=== PATIENT | male | born 1995 | race Caucasian/White ===

== ENCOUNTER 2016-11-12 16:09 | Emergency (ER) | payer BC, OTHER ==
[2016-11-12 16:19] VITALS: BP 118/70
--- NOTE | 2016-11-12 16:44 | UC ---
Ear Complaint HPI - HPI Summary HPI Summary: patient was flushing his ear and stuck the syringe in the ear to flush and felt pain. came in for evaluation. - History of Current Complaint Chief Complaint: UCEar Stated Complaint: RIGHT EAR PAIN Time Seen by Provider: 11/12/16 16:22 Hx Obtained From: Patient Onset/Duration: Sudden Onset, Lasting Hours Severity Initially: Mild Severity Currently: Mild Pain Intensity: 3 Pain Scale Used: 0-10 Numeric Associated Signs/Symptoms: Positive: Trauma to Ear - Allergies/Home Medications Allergies/Adverse Reactions: Allergies Allergy/AdvReac Type Severity Reaction Status Date / Time abx unknown Allergy Rash Uncoded 11/12/16 16:19 PMH/Surg Hx/FS Hx/Imm Hx Previously Healthy: Yes - Surgical History Surgical History: Yes Surgery Procedure, Year, and Place: Ear Tubes - Social History Alcohol Use: Rare Substance Use Type: Marijuana Smoking Status (MU): Never Smoked Tobacco Review of Systems Constitutional: Negative Skin: Negative Eyes: Negative ENT: Ear Ache Respiratory: Negative Cardiovascular: Negative Gastrointestinal: Negative Genitourinary: Negative Motor: Negative Neurovascular: Negative Musculoskeletal: Negative Neurological: Negative Psychological: Negative All Other Systems Reviewed And Are Negative: Yes Physical Exam Triage Information Reviewed: Yes Appearance: Well-Appearing, Well-Nourished, Pain Distress Vital Signs: Initial Vital Signs Temp 98.9 F 11/12/16 16:16 Pulse 87 11/12/16 16:16 Resp 14 11/12/16 16:16 BP 118/70 11/12/16 16:16 Pulse Ox 99 11/12/16 16:16 Vital Signs Reviewed: Yes Eye Exam: Normal Eyes: Positive: Conjunctiva Clear ENT Exam: Other - bilateral cerumen impaction, small area of blood noted on the external canal were patient may have hit the syringe. ENT: Positive: Hearing grossly normal, Pharyngeal erythema Dental Exam: Normal Neck exam: Normal Neck: Positive: Supple, Nontender, No Lymphadenopathy Respiratory Exam: Normal Respiratory: Positive: Chest non-tender, Lungs clear, Normal breath sounds Cardiovascular Exam: Normal Cardiovascular: Positive: RRR, No Murmur, Pulses Normal Abdominal Exam: Normal Abdomen Description: Positive: Nontender, No Organomegaly, Soft Bowel Sounds: Positive: Present Musculoskeletal Exam: Normal Musculoskeletal: Positive: Strength Intact, ROM Intact, No Edema Neurological Exam: Normal Neurological: Positive: Alert, Muscle Tone Normal Psychological Exam: Normal Skin Exam: Normal Ear Complaint Course/Dx - Course Course Of Treatment: hisotry obtained, exam performed, attempted to empty ear of wax with ear currette. removed most, proceeded with water irrigation to finish cleaning the ear. treated for bilateral otitis externa, discusses OTC was build up prevention. - Differential Dx/Diagnosis Differential Diagnosis/HQI/PQRI: Cellulitis, Cerumen Impaction, Otitis Externa, Otitis Media, Trauma, URI Provider Diagnoses: bilateral cerumen impaction. bilateral otitis externa Discharge - Discharge Plan Condition: Stable Disposition: HOME Prescriptions: Ciproflox/Dexameth OTIC.SUSP* [Ciprodex OTIC.SUSP*] 4 drop .SEE ORDER BID #1 [id number] Patient Education Materials: Otitis Externa (ED) Additional Instructions: take the medications as prescribed for the full 10 days. you can buy over the counter debrox drops and use them weekly to prevent build up. if you experience any worsening symptoms please follow up with Dr Hewitt or here at urgent care.
== END 2016-11-12 17:06 | disposition home or self-care (01) ==
LOC: UCCORT 16:09
DX: H60.93 Unspecified otitis externa, bilateral (principal); H61.23 Impacted cerumen, bilateral; T16.1XXA Foreign body in right ear, initial encounter; Z88.1 Allergy status to other antibiotic agents
CPT/HCPCS: 99203; G0463

== ENCOUNTER 2017-03-07 18:53 | Inpatient (IN) | payer BC, OTHER ==
[2017-03-07 20:10] LABS: Urine Bilirubin Negative (Negative); Urine Glucose Negative (Negative); Urine Nitrite Negative (Negative)
[2017-03-07 20:21] LABS: Hematocrit 47 % (42-52); Hemoglobin 15.4 g/dl (14.0-18.0); Mean Corpuscular HGB Conc 33 g/dl (31-36); Mean Corpuscular Hemoglobin 30 pg (27-31); Mean Corpuscular Volume 90 fL (80-94); Mean Platelet Volume 8 um3 (7.4-10.4); Red Blood Count 5.16 10^6/ul (4.0-5.4); Red Cell Distribution Width 13 % (10.5-15); White Blood Count 7.4 10^3/ul (3.5-10.8)
[2017-03-07 20:24] LABS: Benzodiazepine Urine Screen None Detected (None Detect)
[2017-03-07 20:36] LABS: ALT 12 U/L (7-52); AST 15 U/L (13-39); Albumin 4.5 g/dL (3.2-5.2); Alkaline Phosphatase 55 U/L (34-104); Anion Gap 4 mmol/L (2-11); Blood Urea Nitrogen 17 mg/dL (6-24); CO2 Carbon Dioxide 30 mmol/L (22-32); Calcium 9.7 mg/dL (8.6-10.3); Chloride 103 mmol/L (101-111); EGFR African American 106.4 (>60); EGFR Non-African American 82.7 (>60); Globulin 2.5 g/dL (2-4); Glucose 78 mg/dL (70-100); Potassium 3.8 mmol/L (3.5-5.0); Sodium 137 mmol/L (133-145)
[2017-03-07 21:23] LABS: Acetaminophen < 15 mcg/mL; Alcohol < 10 mg/dL (<10); Salicylate < 2.50 mg/dL (<30)
[2017-03-07 21:33] LABS: TSH (Thyroid Stimulating Horm) 2.64 mcIU/mL (0.34-5.60)
[2017-03-08] MEDS ORDERED: chlorproMAZINE TAB* 50 MG Q6H PRN AGITATION PO (03:46)
[2017-03-08] MEDS ORDERED: Al Hydrox/Mg Hydrox/Simet LIQ* 30 ML UDC PO PRN (03:46)
[2017-03-08] MEDS ORDERED: Acetaminophen TAB* 325 MG PO PRN (03:46)
--- NOTE | 2017-03-08 08:05 | ED ---
Aneta Seaman [place], scribed for Ryley Verdugo MD on 03/07/17 at 8 . Psychiatric Complaint - HPI Summary HPI Summary: Patient is a 21 y/o male who presents to the ED with anxiety and depression. He expresses concern about his future actions and desires to be evaluated by mental health. Pt states he is not on any medications and denies EtOH or substance use recently. Pts mother reports that pt used to live with his dad, but has recently moved in with her. - History Of Current Complaint Chief Complaint: EDMentalHealth Time Seen by Provider: 03/07/17 19:54 Hx Obtained From: Patient, Family/Floriculture Professor Onset/Duration: Gradual Onset, Lasting Weeks, Still Present Timing: Constant Severity Initially: Moderate Severity Currently: Moderate Character: Depressed, Anxious Aggravating Factor(s): Nothing Alleviating Factor(s): Nothing Associated Signs And Symptoms: Positive: Negative - Allergies/Home Medications Allergies/Adverse Reactions: Allergies Allergy/AdvReac Type Severity Reaction Status Date / Time abx unknown Allergy Rash Uncoded 11/12/16 16:19 PMH/Surg Hx/FS Hx/Imm Hx - Surgical History Surgery Procedure, Year, and Place: Ear Tubes Infectious Disease History: Denies: Hx Clostridium Difficile, Hx Hepatitis, Hx Human Immunodeficiency Virus (HIV), Hx of Known/Suspected MRSA, Hx Shingles, Hx Tuberculosis, Hx Known/ Suspected VRE, Hx Known/Suspected VRSA, History Other Infectious Disease, Traveled Outside the [place] in Last 30 Days - Family History Known Family History: Positive: Hypertension, Other - Depression. - Social History Alcohol Use: Rare Hx Substance Use: Yes Substance Use Type: Reports: Marijuana Hx Tobacco Use: No Smoking Status (MU): Never Smoked Tobacco Review of Systems Negative: Fever Positive: Anxious, Depressed All Other Systems Reviewed And Are Negative: Yes Physical Exam Triage Information Reviewed: Yes Vital Signs On Initial Exam: Initial Vitals Temp Pulse Resp BP Pulse Ox 98.6 F 112 18 117/87 100 03/07/17 18:55 03/07/17 18:55 03/07/17 18:55 03/07/17 18:55 03/07/17 18:55 Vital Signs Reviewed: Yes Appearance: Positive: Well-Appearing, No Pain Distress Skin: Positive: Warm, Skin Color Reflects Adequate Perfusion, Dry Head/Face: Positive: Normal Head/Face Inspection Eyes: Positive: EOMI, ELENITA Neck: Positive: Supple, Nontender Respiratory/Lung Sounds: Positive: Clear to Auscultation, Breath Sounds Present Cardiovascular: Positive: RRR Abdomen Description: Positive: Nontender, Soft Bowel Sounds: Positive: Present Musculoskeletal: Positive: Normal, Strength/ROM Intact Neurological: Positive: Normal, Sensory/Motor Intact, Alert, Oriented to Person Place, Time Diagnostics - Vital Signs Vital Signs Temp Pulse Resp BP Pulse Ox 03/07/17 18:55 98.6 F 112 18 117/87 100 - Laboratory Lab Results: Lab Results 03/07/17 03/07/17 03/07/17 Range/Units 19:56 19:56 20:11 WBC 7.4 (3.5-10.8) 10^3/ul RBC 5.16 (4.0-5.4) 10^6/ul Hgb 15.4 (14.0-18.0) g/dl Hct 47 (42-52) % MCV 90 (80-94) fL MCH 30 (27-31) pg MCHC 33 (31-36) g/dl RDW 13 (10.5-15) % Plt Count 213 (150-450) 10^3/ul MPV 8 (7.4-10.4) um3 Neut % (Auto) 61.4 (38-83) % Lymph % (Auto) 29.3 (25-47) % [place] % (Auto) 8.2 (1-9) % Eos % (Auto) 0.5 (0-6) % Baso % (Auto) 0.6 (0-2) % Absolute Neuts (auto) 4.6 (1.5-7.7) 10^3/ul Absolute Lymphs (auto) 2.2 (1.0-4.8) 10^3/ul Absolute Monos (auto) 0.6 (0-0.8) 10^3/ul Absolute Eos (auto) 0 (0-0.6) 10^3/ul Absolute Basos (auto) 0 (0-0.2) 10^3/ul Absolute Nucleated RBC 0 10^3/ul Nucleated RBC % 0 Urine Color Colorless Urine Appearance Clear Urine pH 6.0 (5-9) Ur Specific [place] 1.001 L (1.010-1.030) Urine Protein Negative (Negative) Urine Ketones Negative (Negative) Urine Blood Negative (Negative) Urine Nitrate Negative (Negative) Urine Bilirubin Negative (Negative) Urine Urobilinogen Negative (Negative) Ur Leukocyte Esterase Negative (Negative) Urine Glucose Negative (Negative) Urine Opiates Screen None detected (None Detect) Ur Barbiturates Screen None detected (None Detect) Ur Phencyclidine Scrn None detected (None Detect) Ur Amphetamines Screen None detected (None Detect) U Benzodiazepines Scrn None detected (None Detect) Urine Cocaine Screen None detected (None Detect) U Cannabinoids Screen None detected (None Detect) Result Diagrams: 03/07/17 20:11 03/07/17 20:11 Lab Statement: Any lab studies that have been ordered have been reviewed, and results considered in the medical decision making process. Course/Dx - Course Course Of Treatment: NO CRITICAL CARE TIME Assessment/Plan: ADMITTED TO [facility] STABLE AFTER [facility] - Differential Dx/Clinical Impression Provider Diagnosis: Mental health problem Discharge - Discharge Plan Condition: Stable Disposition: ADMITTED TO [facility] The documentation as recorded by the Aneta carson Salem accurately reflects the service I personally performed and the decisions made by , Ryley Verdugo MD.
[2017-03-08] MEDS: Vitamin THERAPEUTIC TAB PO SCH (11:25)
--- NOTE | 2017-03-08 11:32 | PN ---
MHU: Group Therapy Note - Service Type Service Type: [id number] Group Psychotherapy - Group Psychotherapy Note: Chan was attentive and participatory in cbt programming, describing frustrations with working in a [employer] locally. 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 He was well related to staff and peers.
[2017-03-08] MEDS ORDERED: Nicotine Inhaler* 10 MG AMP INH PRN (16:32)
[2017-03-08] MEDS ORDERED: Mouth Piece, Nicotine* 1 EACH CARTRIDGE INH ONE (17:00)
--- NOTE | 2017-03-08 18:53 | HP ---
ADMISSION HISTORY AND PHYSICAL NOTE: DATE OF ADMISSION: To the [address] [place], [place] [id number] on 03/08/17 DATE OF EVALUATION: 03/08/17 IDENTIFICATION: Mr. Velazquez is admitted for his first ever psychiatric hospitalization with suicidal and homicidal ideation per his current report to me, though he states these thoughts have been without clear intent or plan. He reports that this was in the context of worsening anxiety and depressive symptoms over the past 6 months over the course of which he has been experimenting with hallucinogenic substances. HISTORY OF PRESENT ILLNESS: Information was obtained from interview of the patient and review of electronic medical record. The patient reports that yesterday at work, he wanted help because of the mental state he was in. He has been struggling with depression and anxiety, he says for the past 6 months, and he was contemplating in the abstract suicide due to an existential crisis, not due to any particular stressors he said to me, although he did cite in prior evaluations having had concerns about his mortality due to his father having had a blood clot that could have killed him had it not been detected and also the recent euthanasia of a family dog. He reports that he has been rationalizing as an escape from the fear of itself. He reports on review of symptoms of depression that his mood has been "a roller coaster" with calm depths and terrifying peaks, mostly in the context of his anxiety with contemplation of mortality. He reports "I suppose" that I am depressed. He reports anhedonia for about the past 6 months, also feelings of worthlessness and guilt over that time. He reports that starting about a week ago he began awakening in the morning with intense anxiety due to his contemplation of his mortality. He reports that prior to that his sleep had been imperfect, but adequate. He reports his energy level has been low and his appetite has been wavering perhaps attributed to the anxiety that he has reported. He reports that it is difficult to concentrate on things beyond 15 to 30 minutes. He attributes this in part to a history of having been "baby sat" by a play station since the age of 8, also indulging in [employer] videos prominently. He reports that he is back and forth between hopeful and hopeless. He denies any suicidal ideation with a plan. He reports that his thoughts about suicide are only in the context of existential angst. He reports that he has had no symptoms of seb such as racing thoughts, talking fast, decreased need for sleep, and so on. He reports that his anxiety level has been fairly intense in recent months, rating it about an 8/10 on most days, 10/10 on bad days. He denies, however, having any panic attacks. He denies ever any history of trauma or PTSD symptoms. He reports that although he will avoid cracks when walking down a sidewalk and will often walk on his toes that he has no other OCD symptoms such as repeated checking, ordering, counting, or germ phobia. He reports that he has had some hallucinations under the influence of hallucinogenic substances, but never otherwise. He reports that he has never had any ideas of reference, paranoid ideation, delusions, or other psychotic symptoms. MENTAL STATUS EXAMINATION: This is a young man looking his age of 21 with grooming and hygiene adequate to the setting. He makes good eye contact. He has speech of regular rate, rhythm, and volume. He is alert and oriented to person, place, time, and situation. He reports his mood as "positive" with calm and even affect. He denies any auditory or visual hallucinations or paranoid ideation. He denies any suicidal or homicidal ideation. His insight and judgment are fair. His impulse control is intact. PAST PSYCHIATRIC HISTORY: He has never been psychiatrically hospitalized until now. He has only had 2 contacts with therapists, one recently with Naomi Lizarraga, with whom he has an appointment for followup on Monday: he had concerns that he would not be safe waiting for that followup appointment when he presented in the emergency department. He also reports that at about the age of 11, he saw a therapist on the insistence of his school because he was "being a weird kid" with outbursts and so on. He reports that there was contemplation of ADHD and Asperger syndrome, but his parents dismissed the assessment. He denies ever having been diagnosed with any sort of psychiatric disorder. He denies ever any trials of medications. He reports that he has never attempted suicide nor elaborated any specific plan toward suicide, and that his thoughts about suicide have been in the hypothetical in terms of whether this meaningless life is worth continuing. SUBSTANCE ABUSE HISTORY: The patient reports that he had a habit of smoking marijuana 2 to 3 times a week, but stopped about 3 weeks ago, having started at about the age of 19 with increasing use over the past 2 years. He reports that over the past 6 months, he has experimented with hallucinogens using mushrooms once, LSD twice, and Salvia once. He reports that the experience of mushrooms was all positive, that the first experience with LSD was good until he got caught in a "thought loop" which he describes as having forgotten the purpose he had in mind when for example getting a glass of water and going back downstairs to get another glass of water. He reports that the second experience with LSD was worse because he was alone. He did not describe his experience with salvia. He reports only drinking alcohol rarely because his father has alcohol use disorder. He has only once drank to blackout he says. He denies ever any abuse of heroin, cocaine, methamphetamine, amphetamines, benzodiazepines, or other prescription medications. He denies ever any abuse of inhalants or over-the- counter medications. He denies any injection drug use. He reports drinking about a cup of coffee every 3 days. PAST MEDICAL HISTORY: Denies any. Denies specifically any history of traumatic brain injuries, syncopal episodes, or heart problems though he does report that his family has some hypertension and he is concerned about that predisposition. He reports that when he was a young child about the age of 4 he would have episodes where he would pretend that he was a Lego action figure after having a fever and for some reason this was seen as an indication of postfebrile seizures. PAST SURGICAL HISTORY: Denies any. MEDICATIONS AT ADMISSION: None. FAMILY PSYCHIATRIC HISTORY: The patient reports his mother has depression and anxiety and that she came close to attempting suicide about 3 to 4 years ago when she was in an argument with her boyfriend and had a gun in her hand taken away. He reports that she has a possible diagnosis of bipolar affective disorder. SOCIAL HISTORY: The patient grew up in this area. 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 He has 2 half-siblings , a brother 30, a sister 32. The brother has epilepsy. The sister is doing okay he says. He reports that he did not do so well in school, that he attended a community college locally and had to leave due to poor performance in computer science classes, but intends to return there to study computer science and [employer]. LEGAL HISTORY: Denies any. PHYSICAL EXAMINATION Physical examination was performed in the emergency department. There, it was documented that he was within normal limits across all organ systems. He declines a repeat physical examination. He gives a negative review of symptoms for chest pain, shortness of breath, nausea, vomiting, constipation, diarrhea, pain, or dizziness and says that he is not having any symptoms of concern currently other than those I have asked about, although he does state that about 3 months ago he had bright red blood on toilet paper which resolved. I have advised him that this was most likely an anal fissure or hemorrhoid, and that he should follow up with his primary care physician to allay concerns about this. Given his currently negative review of symptoms and recent normal physical exam, I will honor his reasonable request to not be reexamined. VITAL SIGNS: Last entered into the electronic medical record at 7:28 A.M. on 03.08.17, temperature was 99.2, pulse 97, respiratory rate 16, elevated heart rate to 100 which it has been since 9 p.m. the previous evening. Blood pressure , normal, 115/74. LABORATORY VALUES: CBC with differential entirely within normal limits. Comprehensive metabolic panel entirely within normal limits including a normal TSH of 2.64. Urinalysis negative with a low specific gravity of 1.001 and toxicology screen negative for all substances in urine and serum. ASSESSMENT AND PLAN: Chan Velazquez is a 21-year-old single male who has been admitted due to report of thoughts of suicide and homicide. His report of these thoughts to me is that they are without any sort of clear intent or plan, only passing thoughts that are disturbing to him. He reports for example that when he is upset at someone, he will imagine killing them, but makes no definite plan toward doing that. He reports that he has thoughts about suicide , but only in the context of fear of and trying to stave off that fear by preemptive action. He reports that over the past 6 months he has had increasing symptoms of depression and anxiety, this in the context of experimentation on 4 occasions with hallucinogenic substances over that time frame. He does endorse sufficient symptoms to be diagnosed with major depressive disorder with prominent anxiety. We will be offering him Celexa. He voiced his understanding of the potential side effects of increased thoughts of suicide, decreased sex drive, difficulties with bleeding disorders, and possible insomnia or headaches. He reports that he is accepting of these potential side effects for the possible benefits against his depression and anxiety. He is interested in continuing care with his therapist who he has met once, Naomi Lizarraga, and would like referral as well to psychiatrist for continued care. He is encouraged to make use of therapeutic milieu and groups. We will be monitoring his mental status and safety. We will consider psychological testing. DIAGNOSES: Major depressive disorder, single episode, severe without psychotic features and with prominent anxiety. [id number]/[facility] #: [id number] [facility] SYSTEM[facility]ima
[2017-03-09] MEDS: Citalopram TAB* 10 MG PO SCH (09:01)
[2017-03-09] MEDS: Vitamin THERAPEUTIC TAB PO SCH (09:01)
--- NOTE | 2017-03-09 09:44 | PN ---
Subjective - Subjective Service Type: 38827 Hosp care 15 min low complexity Subjective: Chan reports that he is sleeping OK and has no physical complaints. He started low dose Celexa today, and so far has no complaint of side effects. He agrees to complete an MMPI to help clarify assessment. Objective - Appearance Appearance: Healthy Appearing Dysmorphic Features: No Hygiene: Normal Grooming: Fairly Well Kept - Behavior Psychomotor Activities: Normal Exhibits Abnormal Movement: No - Attitude and Relatedness Attitude and Relatedness: Cooperative Eye Contact: Good - Speech Quality: Unpressured Latencies: Normal Quantity: Appropriate - Mood Patient's Decription of Mood: "Could be better" - Affect Observed Affect: Fair Affect Consistent with: Dysphoria - mild - Thought Process Patient's Thought Process: Coherent, Goal Directed, Circumstantial - mildly Thought Content: Yes Passive Wish, No Suicidal Planning, No Homicidal Ideation, No Paranoid Ideation - Sensorium Experiencing Hallucinations: No, Sensorium is Clear Type of Hallucinations: Visual: No, Auditory: No, Command: No - Level of Consciousness Level of Consciousness: Alert Orientation: Yes Intact, Yes Orientated to Time, Yes Orientated to Place, Yes Orientated to Person - Impulse Control Impulse Control: Intact - Insight and Judgement Insight and Judgement: Poor - f - Group Participation Particating in Group Activities: Yes - Medication Management Medication Management Adherence: Yes Assessment - Assessment Merits Inpatient Hospitalization: Consolidate Improvements, For Discharge Planning Inpatient DSM-IV Dx: Major depressive disorder, single episode, severe without psychotic features and with prominent anxiety. Clinical Impression: Day of admission, 5.17.17 Chan Velazquez is a 21-year-old single male who has been admitted due to report of thoughts of suicide and homicide. His report of these thoughts to me is that they are without any sort of clear intent or plan, only passing thoughts that are disturbing to him. He reports for example that when he is upset at someone, he will imagine killing them, but makes no definite plan toward doing that. He reports that he has thoughts about suicide, but only in the context of fear of and trying to stave off that fear by preemptive action. He reports that over the past 6 months he has had increasing symptoms of depression and anxiety, this in the context of experimentation on 4 occasions with hallucinogenic substances over that time frame. He does endorse sufficient symptoms to be diagnosed with major depressive disorder with prominent anxiety. We will be offering him Celexa. He voiced his understanding of the potential side effects of increased thoughts of suicide, decreased sex drive, difficulties with bleeding disorders, and possible insomnia or headaches. He reports that he is accepting of these potential side effects for the possible benefits against his depression and anxiety. He is interested in continuing care with his therapist who he has met once, Naomi Lizarraga, and would like referral as well to psychiatrist for continued care. He is encouraged to make use of therapeutic milieu and groups. We will be monitoring his mental status and safety. We will consider psychological testing. 03.09.17 Chan agrees to psychological testing toward clarification of assessment. He reports early remission of suicidal and homicidal thoughts. He reports continued low mood with prominent anxiety. Plan - Plan Treatment Plan: Name: CHAN VELAZQUEZ Birthdate: 1995 [id number] MMPI today. Continue Celexa, with dose increase to 20 mg tomorrow if well- tolerated at 10 mg. Arrange for follow-up care following discharge. Medications: Current Medications Acetaminophen (Tylenol Tab*) 650 mg PO Q4H PRN PRN Reason: PAIN or TEMP > 101 F Al Hydrox/Mg Hydrox/Simethicone (Maalox Plus*) 30 ml PO Q4H PRN PRN Reason: INDIGESTION Chlorpromazine HCl (Thorazine Tab*) 50 mg PO Q6H PRN PRN Reason: AGITATION Citalopram Hydrobromide (Celexa Tab*) 10 mg PO DAILY [facility] Last Admin: 03/09/17 09:01 Dose: 10 mg Diphenhydramine HCl (Benadryl Po*) 50 mg PO Q6H PRN PRN Reason: AGITATION/INSOMNIA Multivitamins (Theragran Tab*) 1 tab PO DAILY [facility] Last Admin: 03/09/17 09:01 Dose: 1 tab Nicotine (Nicotine Inhaler*) 10 mg INH Q2H PRN PRN Reason: CRAVING - Discharge Plan Discharge Plan: Outpatient Follow Up
[2017-03-10] MEDS: Vitamin THERAPEUTIC TAB PO SCH (08:54)
[2017-03-10] MEDS: Citalopram TAB* 10 MG PO SCH (08:54)
--- NOTE | 2017-03-10 15:29 | CONS ---
PSYCHOLOGICAL REPORT: DATE OF CONSULTATION: 03/10/17 REASON FOR REFERRAL: Chan was referred for a personality testing secondary to concerns regarding possible psychotic range disturbance. TEST ADMINISTERED: Chan completed the [place] Multiphasic Personality Inventory-2 (MMPI-2) as well as the Rorschach Inkblot Projective Exam. He was given feedback in the context of individual psychotherapy session. 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 He describes a very tedious day at work, typically loading "boxes in the boxes. " He is interested in becoming an author and aspires to return to [employer] next year to resume his studies. Chan denies any prior psychiatric hospitalization and has had some outpatient contact prior to coming here. 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 Chan is very clear and articulate about his thoughts and experiences, describing what impresses as an existential crisis of sorts regarding his conception of . He describes being distraught due to permanence of life and the impermanence of his impact on other people especially. He went on to describe how he fell into despair as the only way "out of this mortal coil" is through . Despite these rather intense fixations on life, , and the hereafter, he describes being a devout agnostic. He describes having some interpersonal conflicts secondary to orthodoxy beliefs that apparently were in conflict with some of his friends. However, he is not in acute duress about the loss of contact with these peers. Chan denies any historical difficulties with traumas, other than describing himself as being "a weird kid" and perhaps might have had some Asperger-type syndrome symptomatology. He has not been on medications of any sort until recently being placed on an antidepressant. TEST RESULTS: Chan provides a somewhat distressed profile on this administration of the MMPI-2. He elevates at 3 stress scales on validity indicators, attending a T-score of 105 on the FB scale. Persons high on this scale have endorsed high percentage of items reflecting cynical and pessimistic beliefs and attitudes about people and circumstances. Despite an elevation on this scale, he only has a very mild elevation on the depression scale (T = 67) with more profound elevations occurring on the right half of this testing, with a high point on the schizophrenia scale (T = 88). He has lesser elevations on the paranoia (T = 70), and the psychasthenia scales (T = 75). Interpersonal duress was also the primary clinical indication present in his projections on the Rorschach. He uses color and form in easily accessible and conventional fashions, but articulates dysphoric responses in the context of expectations of relationships. His response set on the Rorschach reveals good reality contact. Although his identifies experiencing auditory hallucinations over the weekend, this symptom has not persisted. Chan is clear and articulate in both group and individual discussion, and offers pro social future orientation, describing immediate plans to attend 3 and then hopefully attend a 4 year school. He also describes hopes in the interpersonal context, and is looking forward to living independently while attending college. Feedback with Chan addressed his sense of feeling emotionally alienated from perceived supports and feeling misunderstood by others. He relates this to possible dysphoric feelings about relationships, but overall returns to a characteristic theme of questioning the value of his life given what impresses him as a perpetual state of impermanence. Chan was encouraged to engage in readings regarding existential writers as well as developing spirituality and perceptions of life and through other forms of activity, including spirituality and perhaps pastoral counseling. Discussion addressed developing conceptions of life and as an appropriate developmental concept that people often do not begin to develop until later stages in life. However, given his college age range, such persons often begin to struggle with such questions of meaning and of . Treatment should continue to assess for possible lethality. It is thought to be reassuring that Chan processes actual thoughts of methodology in regards to suicide as ego dystonic and that he is terrified of the idea of and does not impress as having intentions to follow through with such ideation. He continues to report intrusive thoughts thereof, but does not impress this hand sign writer as likely to act upon these ideas. He has been an active and interested participant in group psychotherapies and has been adherent to unit rules and instructions. DIAGNOSTIC IMPRESSION: Does not impress as being consistent with psychosis, but is reflected in a major depressive disorder, moderate without psychotic features and with prominent anxiety. [id number]/[facility] #: [id number] JUSTUS
--- NOTE | 2017-03-10 15:35 | PN ---
Subjective - Subjective Service Type: 83698 Hosp care 15 min low complexity Subjective: Chan reports a good unit experience - made friendly connections with peers, finds programming useful, feels supported. Emotional pain is "less" and he again says that any suicidal and homicidal ideation was abstract and is not connected to desire to or harm anyone. He affirms he is safe and would like to plan discharge. He accepts idea of consolidation treatment, and asks for off unit walks (I reviewed this with staff and we support it). He denies side effects with Celexa. Objective - Appearance Appearance: Thin Framed Hygiene: Normal Grooming: Well Kept - Behavior Psychomotor Activities: Normal - Attitude and Relatedness Attitude and Relatedness: Cooperative Eye Contact: Good - Speech Quality: Unpressured Latencies: Normal Quantity: Appropriate - Mood Patient's Decription of Mood: "Okay" - Affect Observed Affect: Non-labile Affect Consistent with: Dysphoria - mild - Thought Process Patient's Thought Process: Coherent, Goal Directed Thought Content: No Passive Wish, No Suicidal Planning, No Homicidal Ideation, No Paranoid Ideation - Sensorium Experiencing Hallucinations: No, Sensorium is Clear - Level of Consciousness Level of Consciousness: Alert - Impulse Control Impulse Control: Intact - Insight and Judgement Insight and Judgement: Fair Assessment - Assessment Merits Inpatient Hospitalization: For Stabilization, To Initiate Treatment, For Ongoing Evaluation, Consolidate Improvements, For Discharge Planning Inpatient DSM-IV Dx: Major depressive disorder, single episode, severe without psychotic features and with prominent anxiety. Clinical Impression: First psychiatric admission for a 21-year-old male with minimal prior outpatient mental health contacts. He presented to the ED by car and was admitted due to concern over vague suicidal and homicidal ideation, in the setting of symptoms of depression and anxiety. Stabilizing here. Depressive symptoms continue, with lower apparent distress levels. He is safe on checks, and free of active suicidal or homicidal ideation. Medication mgt. is with new Celexa trial. Psychological testing with MMPI was correlated clinically - see Dr. Jeter's consultation note. Plan - Plan Treatment Plan: Name: CHAN REYES Birthdate: 1995 [id number] Continued Medication Management: Start Medication Medications: Current Medications Acetaminophen (Tylenol Tab*) 650 mg PO Q4H PRN PRN Reason: PAIN or TEMP > 101 F Al Hydrox/Mg Hydrox/Simethicone (Maalox Plus*) 30 ml PO Q4H PRN PRN Reason: INDIGESTION Chlorpromazine HCl (Thorazine Tab*) 50 mg PO Q6H PRN PRN Reason: AGITATION Citalopram Hydrobromide (Celexa Tab*) 10 mg PO DAILY [facility] Last Admin: 03/10/17 08:54 Dose: 10 mg Diphenhydramine HCl (Benadryl Po*) 50 mg PO Q6H PRN PRN Reason: AGITATION/INSOMNIA Multivitamins (Theragran Tab*) 1 tab PO DAILY [facility] Last Admin: 03/10/17 08:54 Dose: 1 tab Nicotine (Nicotine Inhaler*) 10 mg INH Q2H PRN PRN Reason: CRAVING - Discharge Plan Discharge Plan: Outpatient Follow Up
[2017-03-11] MEDS: Citalopram TAB* 10 MG PO SCH (09:04)
[2017-03-11] MEDS: Vitamin THERAPEUTIC TAB PO SCH (09:04)
--- NOTE | 2017-03-12 08:03 | PN ---
Subjective - Subjective Service Type: 23876 Hosp care 15 min low complexity Subjective: Reports ongoing thoughts of and feeling in an existential crisis but denies homicidal thoughts. Tolerating celexa 10 mg. Reports sleeping well but still anxious. Objective - Appearance Appearance: Well Developed/Nourished, Healthy Appearing Dysmorphic Features: No Hygiene: Normal Grooming: Well Kept - Behavior Psychomotor Activities: Normal Exhibits Abnormal Movement: No - Attitude and Relatedness Attitude and Relatedness: Well Related Eye Contact: Good - Speech Quality: Unpressured Latencies: Normal Quantity: Appropriate - Mood Patient's Decription of Mood: "Anxious" - Affect Observed Affect: Depressed Affect Consistent with: Dysphoria - Thought Process Patient's Thought Process: Coherent, Goal Directed Thought Content: Yes Passive Wish, No Suicidal Planning, No Homicidal Ideation, No Paranoid Ideation - Sensorium Experiencing Hallucinations: No, Sensorium is Clear Type of Hallucinations: Visual: No, Auditory: No, Command: No - Level of Consciousness Level of Consciousness: Alert Orientation: Yes Intact, Yes Orientated to Time, Yes Orientated to Place, Yes Orientated to Person - Impulse Control Impulse Control: Tenuous - Insight and Judgement Insight and Judgement: Fair - Group Participation Particating in Group Activities: Yes - Medication Management Medication Management Adherence: Yes Assessment - Assessment Merits Inpatient Hospitalization: For Immediate Safety, For Stabilization, Consolidate Improvements Inpatient DSM-IV Dx: Major depressive disorder, single episode, severe without psychotic features and with prominent anxiety. Plan - Plan Treatment Plan: Name: SARAI REYES Birthdate: 1995 [id number] Continued Medication Management: Different Medication - continue celexa 10 mg with upward titration later Medications: Current Medications Acetaminophen (Tylenol Tab*) 650 mg PO Q4H PRN PRN Reason: PAIN or TEMP > 101 F Al Hydrox/Mg Hydrox/Simethicone (Maalox Plus*) 30 ml PO Q4H PRN PRN Reason: INDIGESTION Chlorpromazine HCl (Thorazine Tab*) 50 mg PO Q6H PRN PRN Reason: AGITATION Citalopram Hydrobromide (Celexa Tab*) 10 mg PO DAILY [facility] Last Admin: 03/11/17 09:04 Dose: 10 mg Diphenhydramine HCl (Benadryl Po*) 50 mg PO Q6H PRN PRN Reason: AGITATION/INSOMNIA Multivitamins (Theragran Tab*) 1 tab PO DAILY [facility] Last Admin: 03/11/17 09:04 Dose: 1 tab Nicotine (Nicotine Inhaler*) 10 mg INH Q2H PRN PRN Reason: CRAVING - Discharge Plan Discharge Plan: Outpatient Follow Up Outpatient Program: in [facility] he lives in
[2017-03-12] MEDS: Vitamin THERAPEUTIC TAB PO SCH (09:13)
[2017-03-12] MEDS: Citalopram TAB* 10 MG PO SCH (09:13)
[2017-03-13 08:02] VITALS: BP 124/74
[2017-03-13] MEDS: Citalopram TAB* 10 MG PO SCH (08:58)
[2017-03-13] MEDS: Vitamin THERAPEUTIC TAB PO SCH (08:58)
--- NOTE | 2017-03-13 12:15 | DS ---
Subjective - Subjective Service Types: 77110 [facility] Day Mgmt simple under 30 min Discharge Date: 03/13/17 Subjective: Chan reports he feels safe and ready for discharge today. His father visited him over the weekend, and has reported to Ms Ford that his son seems at his usual baseline and he has no concerns for his safety following discharge. Psychological testing likewise found no indications of acute safety concerns or psychosis. Chan has no physical complaints, nor complaint of any side effects of Celexa. Objective - Appearance Appearance: Healthy Appearing Dysmorphic Features: No Hygiene: Normal Grooming: Well Kept - Behavior Psychomotor Activities: Normal Exhibits Abnormal Movement: No - Attitude and Relatedness Attitude and Relatedness: Cooperative Eye Contact: Good - Speech Quality: Unpressured Latencies: Normal Quantity: Appropriate - Mood Patient's Decription of Mood: "Pretty alright" - Affect Observed Affect: Fair Affect Consistent with: Euthymia - Thought Process Patient's Thought Process: Coherent, Goal Directed Thought Content: No Passive Wish, No Suicidal Planning, No Homicidal Ideation, No Paranoid Ideation - Sensorium Experiencing Hallucinations: No, Sensorium is Clear Type of Hallucinations: Visual: No, Auditory: No, Command: No - Level of Consciousness Level of Consciousness: Alert Orientation: Yes Intact, Yes Orientated to Time, Yes Orientated to Place, Yes Orientated to Person - Insight and Judgement Insight and Judgement: Good - Group Participation Particating in Group Activities: Yes - Medication Management Medication Management Adherence: Yes Treatment Course & Assessment Clinical Course & Impression: Day of admission, 03.08.17 Chan Velazquez is a 21-year-old single male who has been admitted due to report of thoughts of suicide and homicide. His report of these thoughts to me is that they are without any sort of clear intent or plan, only passing thoughts that are disturbing to him. He reports for example that when he is upset at someone, he will imagine killing them, but makes no definite plan toward doing that. He reports that he has thoughts about suicide, but only in the context of fear of and trying to stave off that fear by preemptive action. He reports that over the past 6 months he has had increasing symptoms of depression and anxiety, this in the context of experimentation on 4 occasions with hallucinogenic substances over that time frame. He does endorse sufficient symptoms to be diagnosed with major depressive disorder with prominent anxiety. We will be offering him Celexa. He voiced his understanding of the potential side effects of increased thoughts of suicide, decreased sex drive, difficulties with bleeding disorders, and possible insomnia or headaches. He reports that he is accepting of these potential side effects for the possible benefits against his depression and anxiety. He is interested in continuing care with his therapist who he has met once, Naomi Lizarraga, and would like referral as well to psychiatrist for continued care. He is encouraged to make use of therapeutic milieu and groups. We will be monitoring his mental status and safety. We will consider psychological testing. 03.09.17 Chan agrees to psychological testing toward clarification of assessment. He reports early remission of suicidal and homicidal thoughts. He reports continued low mood with prominent anxiety. 03.13.17 Chan requests discharge today. He is cleared for discharge. He is assessed as at no acutely increased risk of harm to self or others and capable of adequate self-care to avoid harm. He made good use of groups and the milieu. He reports having benefited from group programming and the therapeutic milieu. He reports that he had only transient (less than 2 minutes) of suspected AH of a motor and then of radio static muffled voice. He talked with staff on Monday about this event that occurred Monday evening, and now wonders if he might have heard an EMS helicopter. This report of supected AH does fit a pattern of overendorsement of symptoms noted by Dr Jeter, with which observation I concur. Chan will benefit from an ongoing psychotherapeutic relationship to help clarify thoughts like these. Further exploration in therapy of his thoughts without intent or plan of harming self and others will also be helpful toward contextualizing them in terms of Chan's overall psychological profile. Psychotherapy will also allow continued monitoring to help reduce chronic risk, which is assessed as only mildly elevated, and modifiable by compliance with aftercare. Chan has requested increase of Lexapro/Celexa to the usual starting dose of 10/20 mg. Merits Inpatient Hospitalization: No Clear for Discharge: Adequate Clinical Respons, Acceptable Safety Profile, Low Utility of Inpt Care Inpatient DSM-IV Dx: Major depressive disorder, single episode, severe without psychotic features and with prominent anxiety. - [place] II MR and Personality Disorder: Deferred - [place] III Medical Illness: None - [place] IV Stressors: Limited day structure Family: Parents involved Primary Support Group: Parents - [place] V [id number]: 65 Estimate of Highest-Past Year: 70 Discharge Planning - Discharge Planning Discharge Plan: Outpatient Follow Up Outpatient Program: Private Clinician(s) - Naomi Lizarraga therapist, with referral to prescriber by her Recommendations for Continuing Care: Medication Management, Psychotherapy Medications: Replace: Citalopram Hydrobromide (Celexa Tab*) 10 mg PO DAILY [facility] Last Admin: 03/13/17 08:58 Dose: 10 mg with Lexapro 10 mg daily, #30, 0 refills. Discharge Planning: Prescriptions provided for discharge [x] Yes, to [facility] on [address] in [facility] [] No Follow up care details as per social work arrangements. Patient response to discharge plan: [x] eager for discharge [x] agreeable with discharge plan [] ambivalent about discharge [] disagrees with discharge today
--- NOTE | 2017-03-13 13:06 | PN ---
[facility]: Group Therapy Note - Service Type Service Type: 15085 Group Psychotherapy - Cognitive Behavioral Group Therapy ( CBT):Patient was attentive and participatory in CBT programming this morning, and remained in good behavioral control. Patient expressed positive insights regarding relevant treatment interventions and goals.
== END 2017-03-13 13:30 | disposition home or self-care (01) | DRG 751 ==
LOC: ED 18:53 → BSU 03-08 05:06
PROVIDERS: ADMIT Internal Medicine; ATTEND Psychiatry & Neurology Psychiatry
DX: F32.2 Major depressive disorder, single episode, severe without psychotic features (principal); R45.851 Suicidal ideations; F41.9 Anxiety disorder, unspecified; Z81.8 Family history of other mental and behavioral disorders
CPT/HCPCS: 36415; 80053; 80307; 80320; 80329; 81003; 84443; 85025; 90853; 96102; 99222; 99231; 99238; A9270-GY; G0480